=== PATIENT | male | born 1975 | race Caucasian/White ===

== ENCOUNTER 2017-12-24 19:40 | Emergency (ER) | payer BC ==
[2017-12-24] MEDS ORDERED: Clindamycin 900 MG/D5W BAG(*) 900 MG/50 ML BAG IVPB ONE (20:35)
[2017-12-24] MEDS ORDERED: Ketorolac INJ* 30 MG/ML 1 ML VIAL IV PUSH ONE (20:37)
--- NOTE | 2017-12-24 20:51 | ED ---
Lower Extremity - HPI Summary HPI Summary: This patient is a 42 year old M presenting to [facility] with a chief complaint of right olmos swelling and pain that he noticed this morning. Pt reports right great toe pain after he pulled it off on 12/23/17 as it was becoming ingrown. The patient rates the pain 2/10 in severity. Patient reports fever as well as erythema in the RLE. No hx of blood clots or DM - History of Current Complaint Chief Complaint: EDExtremityLower Stated Complaint: LT LEG PAIN/CHILLS/FEVER Time Seen by Provider: 12/24/17 20:26 Hx Obtained From: Patient Onset of Pain: Immediate Onset/Duration: Hours Severity Initially: Mild Severity Currently: Mild Pain Intensity: 2 Pain Scale Used: 0-10 Numeric Timing: Constant Location: Is Discrete @ - RLE Associated Signs And Symptoms: Positive: Swelling, Redness, Fever Able to Bear Weight: Yes - Allergies/Home Medications Allergies/Adverse Reactions: Allergies Allergy/AdvReac Type Severity Reaction Status Date / Time No Known Allergies Allergy Verified 12/24/17 19:56 PMH/Surg Hx/FS Hx/Imm Hx Endocrine/Hematology History: Denies: Hx Diabetes Cardiovascular History: Denies: Hx Angioplasty, Hx Cardiomegaly, Hx Congenital Heart Disease Respiratory History: Denies: Hx Chronic Obstructive Pulmonary Disease (COPD), Hx Cystic Fibrosis, Hx Lung Cancer Neurological History: Denies: Hx Headaches, Hx Nerve Disease Infectious Disease History: No Infectious Disease History: Denies: Traveled Outside the [place] in Last 30 Days - Family History Known Family History: Positive: Non-Contributory Negative: Blood Disorder - Social History Occupation: Employed Full-time Lives: With Family Alcohol Use: Weekly Hx Substance Use: No Substance Use Type: Reports: None Hx Tobacco Use: No Smoking Status (MU): Never Smoked Tobacco Review of Systems Positive: Fever Musculoskeletal: Other - pain at right great toe Positive: Edema - RLE Positive: Other - redness All Other Systems Reviewed And Are Negative: Yes Physical Exam - Summary Physical Exam Summary: GENERAL: Patient is a well-developed and nourished M who is lying comfortable in the stretcher. Patient is not in any acute respiratory distress. HEAD AND FACE: Normocephalic EYES: PERRLA, EOMI x 2. EARS: Hearing grossly intact. MOUTH: Oropharynx within normal limits. NECK: Supple, trachea is midline, no adenopathy, no JVD, no carotid bruit. CHEST: Symmetric, no tenderness at palpation LUNGS: Clear to auscultation bilaterally. No wheezing or crackles. CVS: Regular rate and rhythm, S1 and S2 present, no murmurs or gallops appreciated. ABDOMEN: Soft, non-tender. Bowel sounds are normal. No abdominal abnormal pulsations. EXTREMITIES: Full ROM in all major joints. RLE is red and swollen. The great toe is missing the nail. It is also angry and red. NEURO: Alert and oriented x 3. No acute neurological deficits. Speech is normal and follows commands. SKIN: Dry and warm Triage Information Reviewed: Yes Vital Signs On Initial Exam: Initial Vitals Temp Pulse Resp BP Pulse Ox 100.1 F 78 16 164/95 97 12/24/17 19:50 12/24/17 19:50 12/24/17 19:50 12/24/17 19:50 12/24/17 19:50 Vital Signs Reviewed: Yes Diagnostics - Vital Signs Vital Signs Temp Pulse Resp BP Pulse Ox 12/24/17 19:50 100.1 F 78 16 164/95 97 - Laboratory Result Diagrams: 12/24/17 20:41 12/24/17 20:41 Lab Statement: Any lab studies that have been ordered have been reviewed, and results considered in the medical decision making process. - Additional Comments Diagnostic Additional Comments: Venous Doppler shows no acute findings, no evidence of deep vein thrombosis. Dr. Damico has reviewed this report. Lower Extremity Course/Dx - Course Assessment/Plan: This patient is a 42 year old M presenting to [facility] with a chief complaint of right olmos swelling and pain that he noticed this morning. Venous Doppler shows no acute findings, no evidence of deep vein thrombosis. Dr. Damico has reviewed this report. Work up was remarkable of WBC of 14. Pt is no septic or toxic. He is safe for d/c. Surgical line drawn around area of cellulitis for reference. In the ED course the patient was given cleocin, Cipro , and toradol. The patient will be discharged with PO abx. - Diagnoses Provider Diagnoses: Cellulitis Discharge - Sign-Out/Discharge Documenting (check all that apply): Patient Departure - Discharge Plan Condition: Stable Disposition: HOME Prescriptions: Ciprofloxacin HCl [Cipro] 500 mg PO 10 #20 tablet Clindamycin Cap(NF) [Clindamycin Cap 300 mg Cap(NF)] 300 mg PO Q6H #40 cap Patient Education Materials: Cellulitis (ED) Referrals: [facility] [place] [facility] [place]] Additional Instructions: Follow up with your primary care physician in 1-3 days. RETURN TO THE EMERGENCY DEPARTMENT FOR CHANGING OR WORSENING SYMPTOMS. - Billing Disposition and Condition Condition: STABLE Disposition: Home - Attestation Statements Document Initiated by Scribe: Yes Documenting Scribe: Yobany Loja Provider For Whom Scribe is Documenting (Include Credential): Autumn Damico MD Scribe Attestation: Yobany Sanchez, scribed for Autumn Damico MD on 12/25/17 at 0837. Scribe Documentation Reviewed: Yes Provider Attestation: The documentation as recorded by the Yobany mora accurately reflects the service I personally performed and the decisions made by me, Autumn Damico MD
[2017-12-24 20:55] LABS: ABS Basophils 0.1 10^3/ul (0-0.2); ABS Eosinophils 0.1 10^3/ul (0-0.6); ABS Lymphocytes 2.2 10^3/ul (1.0-4.8); ABS Monocytes 1.1 10^3/ul (0-0.8); ABS Neutrophils 11.4 10^3/ul (1.5-7.7); ABS Nucleated RBC 0 10^3/ul; Eosinophil % 0.8 % (0-6); Hematocrit 45 % (42-52); Hemoglobin 15.1 g/dl (14.0-18.0); Lymphocyte % 14.8 % (25-47); Mean Corpuscular HGB Conc 34 g/dl (31-36); Mean Corpuscular Hemoglobin 30 pg (27-31); Mean Corpuscular Volume 89 fL (80-94); Nucleated Red Blood Cells % 0; Platelet Count 199 10^3/ul (150-450); Red Blood Count 5.02 10^6/ul (4.00-5.40); Red Cell Distribution Width 13 % (10.5-15); White Blood Count 14.9 10^3/ul (3.5-10.8)
[2017-12-24 21:16] LABS: EGFR Non-African American 86.8 (>60)
[2017-12-24] MEDS ORDERED: Ciprofloxacin 400MG IVPREMIX(* 400 MG/200 ML BAG IVPB ONE (21:29)
[2017-12-24 23:35] VITALS: BP 137/62
== END 2017-12-24 23:35 | disposition home or self-care (01) ==
LOC: ED 19:40
DX: L03.115 Cellulitis of right lower limb (principal); R60.0 Localized edema; R50.9 Fever, unspecified
CPT/HCPCS: 36415; 80053; 83605; 85025; 86141; 87040; 96365; 96366; 96375; 99282; J0744; J1885

== ENCOUNTER 2017-12-27 17:55 | Emergency (ER) | payer BC ==
[2017-12-27 18:56] LABS: ABS Basophils 0.1 10^3/ul (0-0.2); ABS Eosinophils 0.1 10^3/ul (0-0.6); ABS Lymphocytes 2.5 10^3/ul (1.0-4.8); ABS Monocytes 1.1 10^3/ul (0-0.8); ABS Neutrophils 8.4 10^3/ul (1.5-7.7); ABS Nucleated RBC 0 10^3/ul; Eosinophil % 0.9 % (0-6); Hematocrit 42 % (42-52); Hemoglobin 14.1 g/dl (14.0-18.0); Lymphocyte % 20.3 % (25-47); Mean Corpuscular HGB Conc 34 g/dl (31-36); Mean Corpuscular Hemoglobin 30 pg (27-31); Mean Corpuscular Volume 89 fL (80-94); Nucleated Red Blood Cells % 0.2; Platelet Count 213 10^3/ul (150-450); Red Blood Count 4.66 10^6/ul (4.00-5.40); Red Cell Distribution Width 14 % (10.5-15); White Blood Count 12.2 10^3/ul (3.5-10.8)
[2017-12-27 19:12] LABS: EGFR Non-African American 77.4 (>60)
--- NOTE | 2017-12-27 19:57 | ED ---
Lower Extremity - HPI Summary HPI Summary: Patient with recent history of cellulitis to right olmos complains of increased redness and swelling. Patient seen here at [facility] [place] [facility] [place], diagnosed with cellulitis, placed on Clinda and Cipro. Area of erythema was outlined at that time. Erythema has since receded, but there is now apical fluctuance at the center of the infection. Patient denies fever, N/V, CP, SOB, abdominal pain, change in urine, change in BM. Medical history is none. - History of Current Complaint Chief Complaint: EDRashSkinAbscess Stated Complaint: RT OLMOS INJURY Time Seen by Provider: 12/27/17 18:14 Hx Obtained From: Patient Mechanism Of Injury: Unknown Severity Initially: Mild Severity Currently: Mild Pain Intensity: 4 Timing: Constant Location: Is Discrete @ Character Of Pain: Dull Associated Signs And Symptoms: Positive: Swelling, Redness Aggravating Factor(s): Ambulation, Weight Bearing Alleviating Factor(s): Rest Able to Bear Weight: Yes - Allergies/Home Medications Allergies/Adverse Reactions: Allergies Allergy/AdvReac Type Severity Reaction Status Date / Time No Known Allergies Allergy Verified 12/27/17 18:08 PMH/Surg Hx/FS Hx/Imm Hx Endocrine/Hematology History: Denies: Hx Diabetes Cardiovascular History: Denies: Hx Angioplasty, Hx Cardiomegaly, Hx Congenital Heart Disease Respiratory History: Denies: Hx Chronic Obstructive Pulmonary Disease (COPD), Hx Cystic Fibrosis, Hx Lung Cancer Neurological History: Denies: Hx Headaches, Hx Nerve Disease - Immunization History Immunizations Up to Date: Yes Infectious Disease History: No Infectious Disease History: Denies: Traveled Outside the [place] in Last 30 Days - Family History Known Family History: Positive: Non-Contributory Negative: Blood Disorder - Social History Alcohol Use: Weekly Hx Substance Use: No Substance Use Type: Reports: None Hx Tobacco Use: No Smoking Status (MU): Never Smoked Tobacco Review of Systems Constitutional: Negative Eyes: Negative ENT: Negative Cardiovascular: Negative Respiratory: Negative Gastrointestinal: Negative Genitourinary: Negative Musculoskeletal: Negative Skin: Other Neurological: Negative Psychological: Normal All Other Systems Reviewed And Are Negative: Yes Physical Exam - Summary Physical Exam Summary: 5 cm x 5 cm area of apical fluctuance to right olmos. Erythema has receded from prior outline. PMS intact distally. Nontender. No evidence of compartment syndrome. Triage Information Reviewed: Yes Vital Signs On Initial Exam: Initial Vitals Temp Pulse Resp BP Pulse Ox 97.6 F 87 16 158/83 96 12/27/17 18:03 12/27/17 18:03 12/27/17 18:03 12/27/17 18:03 12/27/17 18:03 Vital Signs Reviewed: Yes Appearance: Positive: Well-Appearing Skin: Positive: Warm Head/Face: Positive: Normal Head/Face Inspection Eyes: Positive: Normal Neck: Positive: Supple Respiratory/Lung Sounds: Positive: Clear to Auscultation Cardiovascular: Positive: Normal Abdomen Description: Positive: Nontender Musculoskeletal: Positive: Normal Neurological: Positive: Normal Psychiatric: Positive: Normal AVPU Assessment: Alert - [place] Coma Scale Best Eye Response: 4 - Spontaneous Best Motor Response: 6 - Obeys Commands Best Verbal Response: 5 - Oriented Coma Scale Total: 15 Procedures - Incision and Drainage 1 Site: right olmos Anesthesia: Local Instrument(s): Scalpel Diagnostics - Vital Signs Vital Signs Temp Pulse Resp BP Pulse Ox 12/27/17 18:03 97.6 F 87 16 158/83 96 - Laboratory Lab Results: Lab Results 12/27/17 12/27/17 12/27/17 Range/Units 18:48 18:48 18:48 WBC 12.2 H (3.5-10.8) 10^3/ul RBC 4.66 (4.00-5.40) 10^6/ul Hgb 14.1 (14.0-18.0) g/dl Hct 42 (42-52) % MCV 89 (80-94) fL MCH 30 (27-31) pg MCHC 34 (31-36) g/dl RDW 14 (10.5-15) % Plt Count 213 (150-450) 10^3/ul MPV 8.0 (7.4-10.4) fL Neut % (Auto) 69.3 (38-83) % Lymph % (Auto) 20.3 L (25-47) % [place] % (Auto) 8.9 H (0-7) % Eos % (Auto) 0.9 (0-6) % Baso % (Auto) 0.6 (0-2) % Absolute Neuts (auto) 8.4 H (1.5-7.7) 10^3/ul Absolute Lymphs (auto) 2.5 (1.0-4.8) 10^3/ul Absolute Monos (auto) 1.1 H (0-0.8) 10^3/ul Absolute Eos (auto) 0.1 (0-0.6) 10^3/ul Absolute Basos (auto) 0.1 (0-0.2) 10^3/ul Absolute Nucleated RBC 0 10^3/ul Nucleated RBC % 0.2 Sodium 136 (135-145) mmol/L Potassium 4.0 (3.5-5.0) mmol/L Chloride 103 (101-111) mmol/L Carbon Dioxide 27 (22-32) mmol/L Anion Gap 6 (2-11) mmol/L BUN 14 (6-24) mg/dL Creatinine 1.06 (0.67-1.17) mg/dL Est GFR ( Amer) 93.6 (>60) Est GFR (Non-Af Amer) 77.4 (>60) BUN/Creatinine Ratio 13.2 (8-20) Glucose 126 H (70-100) mg/dL Lactic Acid 1.4 (0.5-2.0) mmol/L Calcium 9.3 (8.6-10.3) mg/dL Total Bilirubin 0.60 (0.2-1.0) mg/dL AST 25 (13-39) U/L ALT 37 (7-52) U/L Alkaline Phosphatase 77 (34-104) U/L C-Reactive Protein 95.60 H (<8.01) mg/L Total Protein 7.3 (6.4-8.9) g/dL Albumin 3.9 (3.2-5.2) g/dL Globulin 3.4 (2-4) g/dL Albumin/Globulin Ratio 1.1 (1-3) Result Diagrams: 12/27/17 18:48 12/27/17 18:48 Lab Statement: Any lab studies that have been ordered have been reviewed, and results considered in the medical decision making process. Lower Extremity Course/Dx - Course Course Of Treatment: Patient with recent history of cellulitis to right olmos complains of increased redness and swelling. Patient seen here at [facility] [place], diagnosed with cellulitis, placed on Clinda and Cipro. Area of erythema was outlined at that time. Erythema has since receded, but there is now apical fluctuance at the center of the infection. Patient denies fever, N/V, CP, SOB, abdominal pain, change in urine, change in BM. Medical history is none. Physical exam:5 cm x 5 cm area of apical fluctuance to right olmos. Erythema has receded from prior outline. PMS intact distally. Nontender. No evidence of compartment syndrome. I and D performed. Vital signs within normal limits. White count 12.2. Labs otherwise unremarkable. Continue with already prescribed antibiotics. Return for any new or worsening symptoms - Diagnoses Differential Diagnosis/HQI/PQRI: Positive: Cellulitis, Compartment Syndrome, Contusion, Infection Provider Diagnoses: Abscess Discharge - Sign-Out/Discharge Documenting (check all that apply): Patient Departure - Discharge Plan Condition: Stable Disposition: HOME Patient Education Materials: Abscess (ED), Abscess Follow-up (ED) Referrals: No Primary Care Phys,NOPCP [Primary Care Provider] - [facility] [Outside] Additional Instructions: Continue to take antibiotics as directed. Use warm compresses or warm shower water to continue to help wound drain. May wash wound with warm running water and soap. Keep covered when not washing. Continue to keep opening active by pressing on wound to help drain. Follow-up with primary care. Return to the ED for any new or worsening symptoms - Billing Disposition and Condition Condition: STABLE Disposition: Home
[2017-12-27 20:33] VITALS: BP 127/69
--- NOTE | 2017-12-30 18:23 | ED ---
Progress - Progress Note Progress Note: Patient's wound culture is negative for MRSA however positive for staph aureus. He is taking clindamycin and ciprofloxacin. Final results pending. Course/Dx - Course Course Of Treatment: Patient with recent history of cellulitis to right olmos complains of increased redness and swelling. Patient seen here at [facility] [place] [facility] for same, diagnosed with cellulitis, placed on Clinda and Cipro. Area of erythema was outlined at that time. Erythema has since receded, but there is now apical fluctuance at the center of the infection. Patient denies fever, N/V, CP, SOB, abdominal pain, change in urine, change in BM. Medical history is none. Physical exam:5 cm x 5 cm area of apical fluctuance to right olmos. Erythema has receded from prior outline. PMS intact distally. Nontender. No evidence of compartment syndrome. I and D performed. Vital signs within normal limits. White count 12.2. Labs otherwise unremarkable. Continue with already prescribed antibiotics. Return for any new or worsening symptoms - Diagnoses Provider Diagnoses: Abscess Discharge - Sign-Out/Discharge Documenting (check all that apply): Post-Discharge Follow Up - Discharge Plan Condition: Stable Disposition: HOME Patient Education Materials: Abscess (ED), Abscess Follow-up (ED) Referrals: [facility] [Outside] No Primary Care Phys,NOPCP [Primary Care Provider] - Additional Instructions: Continue to take antibiotics as directed. Use warm compresses or warm shower water to continue to help wound drain. May wash wound with warm running water and soap. Keep covered when not washing. Continue to keep opening active by pressing on wound to help drain. Follow-up with primary care. Return to the ED for any new or worsening symptoms - Billing Disposition and Condition Condition: STABLE Disposition: Home
== END 2017-12-27 20:32 | disposition home or self-care (01) ==
LOC: ED 17:55
DX: L02.415 Cutaneous abscess of right lower limb (principal)
CPT/HCPCS: 10060; 36415; 80053; 83605; 85025; 86140; 87070; 87077; 87186; 87205; 87640; 87641; 99282

== ENCOUNTER 2019-05-02 16:33 | Emergency (ER) | payer BC ==
[2019-05-02] MEDS ORDERED: Fluorescein Sodium TOPICAL* 1 MG TEST STRIP OPHTHALMIC ONE (19:37)
--- NOTE | 2019-05-02 19:37 | ED ---
Throat Pain/Nasal Congestion - HPI Summary HPI Summary: Patient complains of left eye pain after removing his contact lens last night. Denies vision change. Patient has been wearing his glasses today. Denies any other pain, urinary symptoms. Denies medical history. - History of Current Complaint Chief Complaint: EDEyeProblem Hx Obtained From: Patient Onset/Duration: Sudden Onset, Lasting Hours Severity: Moderate Associated Signs And Symptoms: Positive: Negative Cough: None - Allergies/Home Medications Allergies/Adverse Reactions: Allergies Allergy/AdvReac Type Severity Reaction Status Date / Time No Known Allergies Allergy Verified 05/02/19 16:34 Home Medications: Home Medications NK [No Home Medications Reported] 05/02/19 [History Confirmed 05/02/19] PMH/Surg Hx/FS Hx/Imm Hx Endocrine/Hematology History: Denies: Hx Diabetes Cardiovascular History: Denies: Hx Angioplasty, Hx Cardiomegaly, Hx Congenital Heart Disease Respiratory History: Denies: Hx Chronic Obstructive Pulmonary Disease (COPD), Hx Cystic Fibrosis, Hx Lung Cancer History: Denies: Hx Dialysis Sensory History: Reports: Hx Contacts or Glasses Opthamlomology History: Reports: Hx Contacts or Glasses EENT History: Denies: Hx Deafness Neurological History: Denies: Hx Headaches, Hx Nerve Disease Infectious Disease History: No Infectious Disease History: Denies: Traveled Outside the [place] in Last 30 Days - Family History Known Family History: Positive: Non-Contributory Negative: Blood Disorder - Social History Alcohol Use: Weekly Hx Substance Use: No Substance Use Type: Reports: None Hx Tobacco Use: No Smoking Status (MU): Never Smoked Tobacco Review of Systems Constitutional: Negative Positive: Other ENT: Negative Cardiovascular: Negative Respiratory: Negative Gastrointestinal: Negative Genitourinary: Negative Musculoskeletal: Negative Skin: Negative Neurological/Mental Status: Negative Psychological: Normal All Other Systems Reviewed And Are Negative: Yes Physical Exam - Summary Physical Exam Summary: Abrasion along medial lower quadrant of pupil on ultraviolet exam. EOMI. PERRLA. Triage Information Reviewed: Yes Vital Signs On Initial Exam: Initial Vitals Temp Pulse Resp BP Pulse Ox 98.6 F 59 16 156/83 98 05/02/19 16:34 05/02/19 16:34 05/02/19 16:34 05/02/19 16:34 05/02/19 16:34 Vital Signs Reviewed: Yes Appearance: Positive: Well-Appearing Skin: Positive: Warm Head/Face: Positive: Normal Head/Face Inspection Eyes: Positive: EOMI, DON, Conjunctiva Inflammed, Other: ENT: Positive: Normal ENT inspection Neck: Positive: Supple Respiratory/Lung Sounds: Positive: Clear to Auscultation Cardiovascular: Positive: Normal Abdomen Description: Positive: Nontender Musculoskeletal: Positive: Normal Neurological: Positive: Normal Psychiatric: Positive: Normal AVPU Assessment: Alert - [place] Coma Scale Best Eye Response: 4 - Spontaneous Best Motor Response: 6 - Obeys Commands Best Verbal Response: 5 - Oriented Coma Scale Total: 15 Procedures - Sedation Patient Received Moderate/Deep Sedation with Procedure: No Diagnostics - Vital Signs Vital Signs Temp Pulse Resp BP Pulse Ox 05/02/19 18:23 99.0 F 54 18 141/97 95 05/02/19 16:34 98.6 F 59 16 156/83 98 - Laboratory Lab Statement: Any lab studies that have been ordered have been reviewed, and results considered in the medical decision making process. EENT Course/Dx - Course Course Of Treatment: Patient complains of left eye pain after removing his contact lens last night. Denies vision change. Patient has been wearing his glasses today. Denies any other pain, urinary symptoms. Denies medical history.. Tenderness. Coronary abrasion on exam. Patient started on gentamicin ophthalmic drops here in the ED. Follow-up with ophthalmology. - Diagnoses Provider Diagnoses: Corneal abrasion, left Discharge ED - Sign-Out/Discharge Documenting (check all that apply): Patient Departure - Discharge Plan Condition: Stable Disposition: HOME Patient Education Materials: Corneal Abrasion (ED) Referrals: No Primary Care Phys,NOPCP [Primary Care Provider] - Darien Woodward MD [Medical Doctor] - Additional Instructions: 2 drops of antibiotic solution in left eye every 4 hours for 5 days. Follow up with ophthalmology Dr. Woodward for further evaluation. - Billing Disposition and Condition Condition: STABLE Disposition: Home
[2019-05-02] MEDS ORDERED: Tetracaine 0.5% OPTH.SOL 4 ML* 1 DROP BTL ONE (19:39)
[2019-05-02] MEDS ORDERED: Fluorescein Sodium TOPICAL* 1 MG TEST STRIP ONE (19:39)
[2019-05-02] MEDS ORDERED: Gentamicin 0.3% OPHTH.SOLN* 5 ML BTL LEFT EYE SCH (20:00)
[2019-05-02] MEDS ORDERED: Tetracaine 0.5% OPTH.SOL 4 ML* 1 DROP BTL SCH (20:00)
[2019-05-02 20:30] VITALS: BP 139/88
== END 2019-05-02 20:29 | disposition home or self-care (01) ==
LOC: ED 16:33
DX: S05.02XA Injury of conjunctiva and corneal abrasion without foreign body, left eye, initial encounter (principal); H57.12 Ocular pain, left eye; X58.XXXA Exposure to other specified factors, initial encounter; Y92.9 Unspecified place or not applicable; Z97.3 Presence of spectacles and contact lenses
CPT/HCPCS: 99282; A9270-GY